=== PATIENT | female | born 1980 | race Caucasian/White ===

== ENCOUNTER 2025-05-25 07:41 | Emergency (ER) | payer OTHER, SELFPAY ==
[2025-05-25 07:45] VITALS: BP 192/78
--- NOTE | 2025-05-25 08:03 | ED.GENMED ---
History of Present Illness
General
Chief Complaint: Abdominal Symptoms
Source: patient
Exam Limitations: none
Time Seen by Provider: 05/25/25 07:57
Nursing documentation reviewed up to this point in time: agreed with
History of Present Illness
History of Present Illness:
45-year-old female with history as noted presents to the ER for evaluation of abdominal and flank pain. Patient reports onset of symptoms yesterday overnight and they seem to improve throughout the day yesterday and last night/early this morning
pain returned. She reports a sharp pain in the left lower quadrant that radiates towards the left flank. No clear triggering or relieving factors noted. She reports associated nausea and vomiting. She denies diarrhea or constipation. She has
not noted any dysuria, hematuria, change in urinary frequency. She denies any vaginal bleeding. She reports chills but no objective fever. She says she has had diverticulitis as well as kidney stones in the past.
Past History
Past History
ED Past Medical History: Other (Cauda Equina, Diverticulitis, )
ED Past Surgical History: Gynecological (Tubal) and Orthopedic (Lumbar Laminectomy)
Review of Systems
Review of Systems
All Other Systems: ROS reviewed and negative except as documented in HPI and ROS
Constitutional: Reports chills; Denies fever
Respiratory: Denies trouble breathing
Cardiac: Denies chest pain
ABD/GI: Reports abdominal pain, nausea and vomiting; Denies diarrhea or constipated
: Reports flank pain; Denies dysuria, frequency or bleeding
Musculoskeletal: Denies neck pain
Neurological: Denies headache
Phy Exam
Physical Exam
Physical Exam:
General: Awake, alert, oriented x3; appears uncomfortable, shifting around the room
Head: Normocephalic, atraumatic
Eyes: Conjunctiva normal, sclera anicteric
Throat: Airway intact, handling secretions
Neck: Trachea midline, supple without meningismus
Lungs: Breathing comfortably no distress
Heart: Regular rate
Abd: Soft, non distended, mildly tender in the left lower quadrant with no peritoneal signs, masses or hernias appreciated
Back: No CVA tenderness
Neuro: Grossly intact
Skin: No rash in the area of concern
Extremities: Warm and well-perfused
Scores
Heart Failure Risk
Heart Failure Risk Score: Not Applicable
Heart Score for Chest Pain Patients
STEMI patient?: Not applicable
Withdrawal Assessment of Alcohol
Withdrawal Assessment Completed?: Not applicable
Course
Orders/Labs/Results
Orders:
Orders
05/25/25 08:02
Ketorolac [Toradol] 15 mg IV NOW STA
Ondansetron Injectable [Zofran] 4 mg IV NOW STA
Test Result ONCE
05/25/25 08:03
0.9% Sodium Chloride 1000 ml [Nss] 1,000 ml IV BOLUS
05/25/25 08:24
Complete Blood Count/With Diff Urgent
Comprehensive Metabolic Panel Urgent
HCG, Serum Qualitative Screen Urgent
05/25/25 08:55
CT Abd/pelvis W Iv Cont Urgent
Comment:
Reason For Exam: LLQ pain radiating to flank
05/25/25 10:10
Tamsulosin [Flomax] 0.4 mg PO NOW STA
05/25/25 10:16
Urinalysis Reflex To Culture Urgent
Date Specimen was Collected: 05/25/25
Time Specimen was Collected: 10:11
Urine Microscopic Reflex Cult Urgent
Abnormal Lab Results
05/25/25 05/25/25
08:24 10:16
WBC 13.4 H 10^3/uL
(4.8-10.8)
Absolute Neuts (auto) 11.4 H 10^3/uL
(1.4-6.5)
Neutrophils % 85.1 H %
(42.2-75.2)
Lymphocytes % 9.3 L %
(20.5-51.1)
BUN 21 H mg/dl
(7-17)
Creatinine 1.1 H mg/dL
(0.6-1.0)
Glucose 138 H mg/dl
(70-99)
Ur Occult Blood Reflex 4+ A
(Negative)
Urine Albumin (Reflex) 2+ A
(Neg - Trace)
05/25/25 08:24
05/25/25 08:24
Vital Signs
Initial and Last Documented VS:
Initial Vital Signs
Temp Pulse Resp Pulse Ox
36.9 C 78 20 98
05/25/25 07:44 05/25/25 07:44 05/25/25 07:44 05/25/25 07:44
Last Documented Vital Signs
Temp Pulse Resp BP Pulse Ox
36.9 C 78 20 192/78 98
05/25/25 07:44 05/25/25 07:44 05/25/25 07:44 05/25/25 07:45 05/25/25 08:07
MDM/Problems Addressed
Differential Diagnosis Includes:
Nephrolithiasis, diverticulitis, constipation, UTI, ovarian cyst
MDM/Problems Addressed:
45-year-old female presents to the ER for evaluation of left lower quadrant pain rating to the flank as described above over the past 48 hours. Hypertensive but otherwise normal vitals. Physical exam as above. Plan to check labs including CBC and
a CMP, hCG. Check urinalysis. Will check CT abdomen pelvis. Will treat pain and nausea. Provide IV fluids. Reassess after the above.
Labs reviewed: CBC shows mild leukocytosis. Chemistry shows mild renal insufficiency with a creatinine of 1.1 from baseline of 0.9. IV fluids in progress. CT reviewed by me appears to show obstructive nephrolithiasis on the left with stone at the
UVJ. Awaiting final report. Patient's pain is well-controlled on clinical reassessment and vitals have been stable.
CT report reviewed: 2 mm obstructive stone at the UVJ but no other acute abnormalities. Urinalysis shows no signs of infection. Although she does have a leukocytosis she has no fever suspect this is more of a stress reaction rather than related to
an acute infection. She does not appear septic and on reassessment after Toradol she says her pain has resolved and she feels much better. In my judgment she is stable for discharge for trial of passage. Will prescribe Flomax. Given a strainer.
Spoke about follow-up plan and return precautions. All questions answered.
*Radiology
Radiology exam reviewed: radiology read reviewed
*Pulse Oximetry
SaO2: 98
Oxygen Mode of Delivery: Room air
Patient hypoxic: no (98%)
*Critical Care Note
Total Time (30-74mins, 75-104mins- exclusive of procedures): Not Applicable
Data Reviewed
Review of Other/Old Records Reveals: Labs and Records
Source: patient and records
ED Attending Note
-
Portions of this chart may have been created with voice recognition software.� Occasional wrong word or��sound alike� substitutions may have occurred due to the inherent limitations of voice recognition software.
Discharge Plan
Departure
Patient Disposition: Home (Routine Discharge)
Date of Disposition: 05/25/25
Time of Disposition: 10:39
Patient with high blood pressure during this ER visit?: Yes
Discharge Problem:
Kidney stone
Instructions: Kidney stone diet, Kidney stones in adults - ED (DC)
Prescriptions:
New
tamsulosin [Flomax] 0.4 mg capsule
0.4 mg PO DAILY Qty: 14 0RF
Rx Instructions:
Take once daily until symptoms resolve
oxycodone 5 mg tablet
5 mg PO Q8H PRN (Reason: Pain) Qty: 10 0RF
No Action
fluoxetine 20 mg Tablet
20 mg PO DAILY
solifenacin 10 mg Tablet
10 mg PO DAILY
prednisone 20 mg tablet
40 mg PO DAILY Qty: 10 0RF
Referrals:
Amenta,Fiorella L., DO [Family Provider, Internal Medicine]
Chris Castillo MD [Active, Urology] - As needed
Activity Restrictions/Additional Instructions:
Thank you for visiting the Emergency Department at [facility].
1. Please schedule a follow up appointment as directed. Call first thing tomorrow morning to make an appointment.
2. If indicated, please take your medications as instructed and indicated on discharge paperwork.
3. If any of your symptoms do not improve, or persist, or become more severe within 6-12 hours, please return to the emergency department for further care.
4. Please return to the emergency department if you develop a headache, neck pain/stiffness, fever greater than 100.4F, chest pain, shortness of breath, persistent nausea, vomiting, slurred speech, difficulty walking, numbness/tingling, weakness,
signs of infection or any other symptoms that are worrisome to you.
Please call [phone] if you have any questions.
Interventions
Interventions:
*Risk Screen - Suicide Last Done: 05/25/25 08:14
*General Assessment Last Done: 05/25/25 10:00
*Neglect/Abuse Screening Last Done: 05/25/25 08:14
*ED- Fall Risk Assessment Last Done: 05/25/25 08:14
*ED COVID-19 Vaccine History Last Done: 05/25/25 08:14
*ED Influenza Vaccine History Last Done: 05/25/25 08:14
OD-Yjksqh-Dkvcxrqjdf Assessment Last Done: 05/25/25 08:14
Discharge Date and Time
Print Language: [id number]
[2025-05-25 08:14] VITALS: BMI 42.3
[2025-05-25] MEDS: ZOFRAN 4 MG IV ×2 (08:25→10:50)
[2025-05-25] MEDS: TORADOL 15 MG IV (08:25)
[2025-05-25] MEDS: NSS 1000 IV (08:25)
[2025-05-25 08:36] LABS: Hematocrit 44.1 % (37.0-47.0); Hemoglobin 14.9 g/dL (12.0-16.0); Mean Corp Hgb Conc. 33.8 g/dL (33.0-37.0); Mean Corpuscular Volume 86.3 fL (81.0-99.0); Nucleated Red Blood Cells % 0 %; Platelet Count 332 10^3/uL (130-400); Red Cell Dist. Width 13.8 % (11.5-14.5)
[2025-05-25 08:53] LABS: ALT (SGPT) 18 U/L (0-35); AST (SGOT) 21 U/L (14-36); Albumin 4.5 g/dl (3.5-5.0); Alkaline Phosphatase 103 U/L (38-126); Blood Urea Nitrogen 21 mg/dl (7-17); Calcium 9.9 mg/dl (8.4-10.2); Carbon Dioxide 26 mmol/L (22-30); Chloride 102 mmol/L (98-107); Estimated Creatinine Clearance 83 ml/min; Glucose 138 mg/dl (70-99); HCG, Serum Qualitative Screen Negative; Potassium 3.9 mmol/L (3.5-5.1); Sodium 140 mmol/L (135-145); Total Protein 7.7 g/dl (6.3-8.2); eGFR > 60.00
[2025-05-25] MEDS: FLOMAX 0.4 MG PO (10:14)
[2025-05-25 10:29] LABS: Urine Character Clear (Clear)
[2025-05-25 10:47] LABS: Urine Red Blood Cell 30-40 /HPF (0-2)
[2025-05-25 10:48] LABS: Urine Squamous Cell >30 /LPF (Few)
[2025-05-25 11:03] VITALS: BP 172/73
== END 2025-05-25 11:05 | disposition home or self-care (01) ==
LOC: EMR 07:41
PROVIDERS: EMERGENCY PHYSICIAN Emergency Medicine; FAMILY PHYSICIAN Internal Medicine
DX: N20.2 Calculus of kidney with calculus of ureter (principal); R03.0 Elevated blood-pressure reading, without diagnosis of hypertension; D72.829 Elevated white blood cell count, unspecified; N28.9 Disorder of kidney and ureter, unspecified; G83.4 Cauda equina syndrome; Z87.442 Personal history of urinary calculi
CPT/HCPCS: 99284; 96374; 96375; 96376; 96361; 74177; 80053; 81003; 81015; 84703; 85025; 87086; Q9967